=== PATIENT | male | born 1965 | race Caucasian/White ===

== ENCOUNTER 2021-06-14 10:41 | Emergency (ER) | payer BC, SELFPAY ==
[2021-06-14 10:46] VITALS: BP 138/87; PULSE 68; PULSE 69; RESP 16; RESP 17; TEMP 36.9; O2SAT 97; O2SAT 98; BMI 31.6
--- NOTE | 2021-06-14 10:59 | NURSING ---
NO OLD EKGS
--- NOTE | 2021-06-14 11:00 | EKG12_ITS ---
Test Reason : CP Blood Pressure : / mmHG Vent. Rate : 065 BPM Atrial Rate : 065 BPM P-R Int : 134 ms QRS Dur : 136 ms QT Int : 408 ms P-R-T Axes : 028 080 -17 degrees QTc Int : 424 ms Normal sinus rhythm Right bundle branch block T wave abnormality, consider inferior ischemia Abnormal ECG Confirmed by RENAY SHELBY, WILLAM ([id number]), video effects editor NATHALIA SIMS ([id number]) on 06/19/2021 6:46:49 AM Referred By: Confirmed By:WILLAM NIÑO MD
--- NOTE | 2021-06-14 11:10 | ED.VIS.CHEST ---
HPI History of Present Illness Chief Complaint: Chest Pain Informant: patient Onset/Context/Timing Onset: Today and Yesterday Activity at onset: gradual Timing: Intermittent Quality: Positive for Heaviness Location: Substernal Current Severity: Mild Maximum Severity: Mild Worsened By: Nothing; Not Worsened By Exertion Relieved By: Nothing Associated Symptoms: Negative for Nausea, Vomiting, Diaphoresis, Dyspnea, Cough, Fever, Lightheadedness, Acid Reflux and Palpitations Narrative Narrative: 56-year-old male history of diabetes. States that recently was had a stroke but she is recovered well from that. And she had recent knee surgery. He said he thinks he is undergoing a lot of stress. Yesterday he had midsternal chest heaviness. It resolved on its own. It returned again today. He states this is not exertional. He denies any shortness of breath. He denies any nausea or diaphoresis. He states that a year ago in [place] at [facility] he had a stress test and then he had a cardiac catheterization which he states they told him that his vessels were extremely clean. He did not undergo any stents or anything. He also was seen recently at another local emergency department in [facility]. He had a cardiac work-up there which was negative was discharged home. Followed up with his primary care physician. Was prescribed antianxiety medications which he decided he did not want to take with the side effects. Prior Similar Symptoms: Yes Recent Illness/Hospitalization: No CVD Risk Factors: Positive for Diabetes; Negative for Hypertension, Hypercholesterolemia, Family History 1' </=55 and Smoking PE Risk Factors: Negative for Recent Travel/Surgery, Recent Immobilization, Prior DVT or PE, Cancer and OCP + Smoking + >/=35 TAD Risk Factors: Negative for Marfan's Syndrome, Hypertension and Family History [facility] Medical History Type 2 diabetes mellitus Home Medications atorvastatin 06/14/21 [History Last Taken Unknown] metformin 500 mg PO BID 06/14/21 [History Last Taken Unknown] Allergy/AdvReac Type Severity Reaction Status Date / Time No Known Allergies Allergy Verified 06/14/21 10:54 Surgical History History of back surgery Social History Smoking Status: Never smoker ROS ROS ED ROS Narrative Denies recent illness. Review of Systems ROS Unobtainable: Denies due to encephalopathy Constitutional Constitutional ED: Denies fever(s) or subjective Eyes Eyes: Denies none or change in vision ENT ENT ED: Denies ear pain or rhinorrhea Cardiovascular Cardiovascular: Reports as per HPI and chest pain; Denies palpitations or racing heartbeat Respiratory/Chest Respiratory/Chest: Denies cough or dyspnea Gastrointestinal Gastrointestinal: Denies abdominal pain, diarrhea, nausea or vomiting Genitourinary Genitourinary ED: Denies dysuria Musculoskeletal Musculoskeletal: Denies myalgias Integumentary Denies rash Neurologic Neurologic: Denies headache(s) Psychiatric Psychiatric: Denies depression Endocrine Endocrinology: Denies polyuria Hematologic/Lymphatic Hematologic/Lymphatic: Denies easy bruising Allergic/Immunologic Allergic/Immunologic ED: Denies urticaria EXAM Physical Exam Narrative Exam Narrative: Middle-age male no acute distress vital signs stable afebrile. Pulse ox 90% on room air no signs of hypoxia. HEENT neck exam normal. Lungs clear to auscultation bilaterally. Heart regular rate and rhythm no murmur. Abdomen soft nontender. Moving all 4 extremities. Calves nontender without edema or cords. Equal symmetrical radial pulses. Chest wall nontender. Exam is basically normal. There is no reproducible pain. Const Vital Signs: 06/14/21 10:46 06/14/21 11:12 06/14/21 12:33 Temperature 98.4 F Temperature Source Temporal Pulse Rate 68 58 L Respiratory Rate 16 14 Blood Pressure 138/87 H 126/84 H Blood Pressure Mean 104 98 Pulse Ox 98 95 Oxygen Delivery Method Room Air Room Air Room Air Positive well nourished and well developed; Negative for obese, cachectic, contractures or unkempt General Appearance ED: well developed and NAD; Negative for unkempt, cachectic, contractures or pallor Nutritional Appearance: Negative for cachectic or obese HEENT Reports moist mucous membranes; Denies TM's clear normocephalic and atraumatic; Negative for trauma or tenderness Tympanic Membrane ED: Negative for TM's clear Eyes PERRL and EOMs intact bilaterally Neck no lymphadenopathy, supple and no JVD General: Negative for tenderness Chest Wall inspection of chest normal and palpation of chest normal Resp normal respiratory effort and clear to auscultation bilaterally Effort and Inspection: respiratory distress Auscultation: Negative for rales, rhonchi or wheezes Cardio regular rate, regular rhythm, S1 normal heart sound, S2 normal heart sound and no murmurs Rate: Negative for tachycardic GI normal to inspection, nondistended, normoactive bowel sounds, soft to palpation, non-tender, non-distended and no masses; Negative for hepatosplenomegaly Auscultation: Negative for hyperactive bowel sounds Palpation: Negative for splenomegaly Back/Spine no CVA tenderness Extremity normal to inspection General Extremety ED: Negative for edema, pulses abnormal or tenderness General Extremity: Negative for edema or pulses abnormal Neuro oriented x3 Sensorium / Orientation: awake, alert, oriented to person, oriented to place and oriented to time Motor Exam: strength 5/5 throughout Psych mental status grossly normal Appearance: Negative for unkempt Attitude: No agitated Mood & Affect: Negative for depressed or tearful Skin no rashes or lesions noted and no wounds General Skin Exam: Negative for jaundice or pallor Heart Score History: Moderately Suspicious ECG: Normal Age: >45 - <65 years Risk Factors: 1 or 2 Risk Factors Troponin: </= Normal Limit Score: 3 MDM MDM MDM Narrative Medical decision making narrative: 56-year-old gentleman diabetic who has midsternal chest pain yesterday and today is not associated with exertion. He has no other symptoms with it. He reported a negative cardiac cath 1 year ago. We will try to get those results. He will undergo a cardiac work-up. Repeat exam patient is doing well at 1:03 PM. His tests are negative. We were able to get a hold of his recent cardiac cath report from a year ago from [facility]. The report showed normal coronary arteries. He has an EF of 60%. Repeat exam patient is doing well at 2:48 PM. Second troponin was unremarkable at 9 also. In length he had a recent cardiac catheterization a year ago was negative and 2 - troponins unremarkable EKG will be discharged home. Lab Data Attestation: I reviewed the patient's lab results. Lab results narrative: CBC normal. Normal white count of 7. Hemoglobin of 14.4. Electrolytes unremarkable gap of 4. Normal BUN and creatinine. Normal glucose 172. Troponin was 9. 2-hour troponin repeat was 9 also. Labs: Laboratory Results - last 24 hr 1006/14/21 06/14/21 11:15 11:15 13:12 WBC 7.5 RBC 4.92 Hgb 14.4 Hct 42.2 MCV 85.8 MCH 29.3 MCHC 34.1 RDW Std Deviation 40.1 RDW Coeff of Mary 12.9 Plt Count 163 MPV 9.8 Immature Gran % (Auto) 0.300 Neut % (Auto) 80.6 H Lymph % (Auto) 13.0 L [place] % (Auto) 4.3 Eos % (Auto) 1.5 Baso % (Auto) 0.3 Absolute Neuts (auto) 6.0 Absolute Lymphs (auto) 0.97 Nucleated RBC % 0 Sodium 139 Potassium 4.2 Chloride 107 Carbon Dioxide 28.0 Anion Gap 4 L BUN 13 Creatinine 0.82 Estim Creat Clear Calc 109.68 Est GFR (MDRD) Af Amer 127 Est GFR (MDRD) Non-Af 105 BUN/Creatinine Ratio 16.0 Glucose 172 H Calcium 9.1 Troponin I High Sens 9 9 Radiography Chest X-Ray - ED: 1 View, Read by ED Physician, Read by Radiologist, Heart, Lungs, Mediastinum, Bony Structures and No Acute Disease Diagnostic Testing: Clinical Impression(s) from Imaging Studies Chest X-Ray 06/14/21 11:25 IMPRESSION: No acute abnormality is seen. Electronically Signed: John Tenorio MD at 11:49 EDT , Service support , Portable single view chest x-ray showed no acute abnormality. Normal cardiac silhouette mediastinum. Rhythm Strip Rhythm Strip: Sinus Rhythm Rate: 65 Ectopy: None EKG Initial EKG: Interpretation: Sinus Rhythm, No Acute Injury Pattern and RBBB Comments: Normal sinus rhythm rate of 65 no acute signs of MT or ischemia. He does have a right bundle branch block which she has had before he tells me. Prior EKG tracings: not available for review Discharge Plan Triage Chief Complaint: Chest Pain ED Provider: Roger Thurston Dx/Rx/DC Orders Clinical Impression: Chest pain Instructions: ED Chest Pain, Noncardiac Prescriptions: No Action metformin 500 mg Tablet 500 mg PO BID RF: 0 atorvastatin RF: 0 Primary Care Provider: Jw Savage Referrals: Jw Savage MD [Primary Care Provider] - 1 Week if not improving Activity Restrictions/Additional Instructions: Follow-up with your doctor if not improving. All your test today were unremarkable. Disposition Disposition: Home, Self Care
[2021-06-14] MEDS: Aspirin 81 MG TAB.CHEW 324 MG PO (11:11)
[2021-06-14 11:19] LABS: Absolute Lymphocyte Count 0.97 X10^3/uL (0.83-4.51); Basophil# 0.02 X10^3/uL; Basophil% 0.3 % (0-1); Eosinophil# 0.11 X10^3/uL; Eosinophils% 1.5 % (0-5); Hematocrit 42.2 % (40-54); Hemoglobin 14.4 g/dL (13.0-16.5); Lymphocyte # 0.97 X10^3/ul (0.83-4.51); Mean Corp Hgb Conc 34.1 g/dL (32-36); Mean Corpuscular Hgb 29.3 pg (27.0-32.0); Mean Corpuscular Volume 85.8 fL (80-94); Mean Platelet Vol. 9.8 fl (6.2-12.0); Monocyte# 0.32 X10^3/uL; Monocyte% 4.3 % (0-10); NRBC Flagged by Analyzer 0 % (0-5); Neutrophil # 6.01 X10^3/uL (2.7-7.7); Neutrophil % 80.6 % (47-70); Platelet Count 163 K/mm3 (150-450); RBC Distribution Width CV 12.9 % (11.6-14.6); RBC Distribution Width SD 40.1 fl (35.1-43.9); Red Blood Count 4.92 M/mm3 (4.6-6.2); White Blood Count 7.5 K/mm3 (4.4-11.0)
--- NOTE | 2021-06-14 11:25 | RAD_ITS ---
STUDY: X-RAY CHEST REASON FOR EXAM: Male, 56 years old. Chest pain TECHNIQUE: Single AP portable view of the chest. COMPARISON: None. FINDINGS: EKG electrodes are seen. The lungs are clear and expanded. Scattered calcified granulomas. There is no demonstrated pleural abnormality. Normal size heart. Normal mediastinum and arabella. Normal visualized pulmonary arteries. Normal visualized aortic arch and descending thoracic aorta. There are diffuse degenerative changes of the visualized thoracic spine. Normal visualized ribs, clavicles, and shoulders. There is no demonstrated abnormality of the visualized soft tissue structures of the upper abdomen. RAD/Chest 1 View (Portable) IMPRESSION: No acute abnormality is seen. Electronically Signed: John Tenorio MD at 11:49 EDT , Service support ,
--- NOTE | 2021-06-14 11:25 | NURSING ---
CALLED [facility] IN [place] [facility]. THEY HAVE A 3RD [place], DEANDRE. WILL NEED TO FAX A RELEASE TO [phone]
[2021-06-14 11:37] LABS: Anion Gap 4 (5-15); BUN 13 mg/dL (7-18); Calcium,Total 9.1 mg/dL (8.5-10.1); Chloride 107 mmol/L (98-107); Creatinine, Serum 0.82 mg/dL (0.70-1.30); EST Glomerular Filtration Rate 105 mL/min (>60); Est Glom Filt Rate - Afr Amer 127 mL/min (>60); Estimated Creatinine Clearance 109.68 ml/min; Glucose 172 mg/dL (74-106); Potassium 4.2 mmol/L (3.5-5.1); Sodium Level 139 mmol/L (136-145); Troponin-I HS 9 pg/mL (3.0-78.0)
[2021-06-14 12:33] VITALS: BP 126/84; PULSE 58; RESP 14; O2SAT 95
[2021-06-14 13:34] LABS: Troponin-I HS 9 pg/mL (3.0-78.0)
[2021-06-14 14:56] VITALS: BP 139/89; PULSE 58; RESP 14; O2SAT 98
== END 2021-06-14 14:56 | disposition home or self-care (01) ==
PROVIDERS: Emergency Provider Emergency Medicine; PCP Family Medicine
DX: R07.9 Chest pain, unspecified (principal); I45.10 Unspecified right bundle-branch block; E11.9 Type 2 diabetes mellitus without complications; Z79.84 Long term (current) use of oral hypoglycemic drugs
CPT/HCPCS: 71045; 80048; 84484; 85025; 93005; 99284; A4216